=== PATIENT | male | born 1985 ===

== ENCOUNTER 2025-03-28 06:00 | Day surgery (SDC) | payer OTHER ==
[2025-03-24 08:23] VITALS: BP 121/87
[2025-03-24 08:48] LABS: BASO % 0.6 % (0.1-1.2); EOS # 0.17 (0.04-0.54); EOS % 2.0 % (0.7-7.0); LYMPH # 2.40 (1.18-3.74); LYMPH % 28.1 % (19.3-53.1); MEAN PLATELET VOLUME 10.30 fl (9.4-12.4); MONO # 0.59 (0.24-0.82); MONO % 6.9 % (4.7-12.5); NEUT # 5.28 (1.56-6.13); NEUT % 61.8 % (34.0-71.1); RED CELL DISTRIBUTION WIDTH 11.9 % (11.6-14.4)
[2025-03-24 08:59] LABS: URINE APPEARANCE Clear; URINE BILIRRUBIN Negative (NEGATIVE); URINE BLOOD Negative; URINE COLOR Yellow; URINE GLUCOSE Negative (NEGATIVE); URINE KETONE Negative (NEGATIVE); URINE LEUKOCYTE Negative; URINE NITRATE Negative; URINE PROTEIN Negative (NEGATIVE); URINE UROBILINOGEN 0.2 E.U./dl
[2025-03-24 09:05] LABS: URINE RBC 12.9 uL (0.0-20.8)
[2025-03-24 09:12] LABS: URINE BACTERIA 2.3 uL (0.0-1933); URINE CAST 0.00 uL (0.0-1.40); URINE EPITHELIAL CELLS 0.4 uL (0.0-38.8); URINE WBC 1.3 uL (0.0-23.2)
[2025-03-24 09:34] LABS: INR 1.02
[2025-03-24 09:55] LABS: ALT/SGPT 33.0 U/L (12-78); AST/SGOT 16.0 U/L (15-37); BILIRUBIN TOTAL 1.53 mg/dL (0.3-1.2); BUN CREA RATIO 18.0 (7.0-25.0); CREATININE SERUM 0.71 mg/dL (0.70-1.30); GFR 121.66; GLOBULINA 3.3 G/DL (2.4-3.5); GLUCOSE FASTING 92.0 mg/dL (65-100); OSMOLALITY SERUM 281.0 MOSM/KG (275-295)
[~2025-03-28] VITALS: Ht 175.3 cm; Wt 77.1 kg
[~2025-03-28 06:00] MED LIST: ATORVASTATIN CA10 MG PO
[2025-03-28] MEDS ORDERED: CEFAZOLIN SODIUM 1,000 MG VIAL ONE (07:01)
[2025-03-28] MEDS ORDERED: SUGAMMADEX SODIUM 200 MG/2 ML VIAL IV ONE (09:26)
== END 2025-03-28 12:45 | disposition home or self-care (01) ==
LOC: CIR.AMB 06:00
PROVIDERS: ATTEND Surgery
DX: K40.90 Unilateral inguinal hernia, without obstruction or gangrene, not specified as recurrent (principal)
CPT/HCPCS: 49650; C1781; S2900